=== PATIENT | male | born 1975 | race African-American/Black ===

== ENCOUNTER 2016-12-23 16:46 | Emergency (ER) | payer BC, OTHER ==
[2016-12-23 17:29] VITALS: BP 119/78
--- NOTE | 2016-12-23 18:34 | EDM.PDOC ---
<Omid Hinojosa Darryl - Last Filed: 12/23/16 19:19> ED HPI GENERAL MEDICAL PROBLEM - General Chief Complaint: Back Pain or Injury Stated Complaint: SHOULDER PAIN Time Seen by Provider: 12/23/16 16:51 Source of Information: Reports: Patient History Limitations: Reports: No Limitations - History of Present Illness INITIAL COMMENTS - FREE TEXT/NARRATIVE: 41 y/o M sent from clinic for eval of R shoulder pain and subjective fever. Patient returned from visit to [facility] 2 days ago. 3 days ago had mild abd pain and nausea after eating, thought it was from bad food. This resolved. After flight, started having pain in R shoulder, neck/back, diffuse myalgias, and subjective fever. Worried that he may have malaria. Denies injury to arm. Pain is throughout shoulders/back area but is most severe in R shoulder. No additional joint pain. Unable to lift R arm due to pain in the joint of the shoulder area. Denies hx similar sx. Denies additional arm pain. No numbness/ tingling. No cough. No vomiting or diarrhea. Continues to feel fatiguted/ ill. No rash. Seen in clinic today where labs were completed, sent here for further eval. Treatments [employer]: Reports: NSAIDS Upper Back Pain Score (Numeric/FACES): 9 - Related Data Allergies Allergy/AdvReac Type Severity Reaction Status Date / Time No Known Allergies Allergy Verified 12/23/16 17:29 Home Meds: Home Meds Rosuvastatin [Crestor] 10 mg PO BEDTIME 12/23/16 [History] Past Medical History - Past Health History Medical/Surgical History: Denies Medical/Surgical History Cardiovascular History: Reports: High Cholesterol - Past Surgical History HEENT Surgical History: Reports: Oral Surgery Social & Family History - Family History Family Medical History: Noncontributory - Tobacco Use Smoking Status *Q: Never Smoker Years of Tobacco use: 1 Second Hand Smoke Exposure: No - Alcohol Use Days Per Week of Alcohol Use: 2 Number of Drinks Per Day: 1 Total Drinks Per Week: 2 - Recreational Drug Use Recreational Drug Use: No ED ROS GENERAL - Review of Systems Review Of Systems: See Below Constitutional: Reports: Fever, Chills, Malaise, Weakness, Fatigue HEENT: Reports: No Symptoms Respiratory: Denies: Shortness of Breath, Cough Cardiovascular: Denies: Chest Pain Endocrine: Reports: Fatigue GI/Abdominal: Reports: Abdominal Pain : Reports: No Symptoms Musculoskeletal: Reports: Neck Pain, Shoulder Pain Skin: Denies: Rash Neurological: Reports: No Symptoms Psychiatric: Reports: No Symptoms Hematologic/Lymphatic: Reports: No Symptoms Immunologic: Reports: No Symptoms ED EXAM, UPPER BACK/NECK PAIN - Physical Exam Exam: See Below Exam Limited By: No Limitations General Appearance: Alert, WD/WN, No Apparent Distress Eye Exam: Bilateral Eye: Normal Inspection Ears Exam: Normal External Exam Nose Exam: Normal Inspection, Normal Mucousa, No Blood Throat/Mouth Exam: Normal Inspection, Normal Lips, Normal Teeth, Normal Gums, Normal Oropharynx, Normal Voice, No Airway Compromise Head Exam: Atraumatic, Normocephalic Neck Exam: Full Range of Motion, Normal Alignment, Normal Inspection, Paraspinous Muscle Tender. No: Muscle Spasm, Painful Range of Motion, Stiff Neck, Tender Midline Cardiovascular/Respiratory: Regular Rate, Rhythm, Normal Peripheral Pulses GI/Abdominal: Soft, Non-Tender, No Distention. No: Rebound Back Exam: Normal Inspection, Full Range of Motion, Paraspinal Tenderness. No: CVA Tenderness (L), CVA Tenderness (R), Vertebral Tenderness Extremities: Normal Inspection, Other (No musuloskeletal point TTP. Limited ROM Of R shoulder. Very limited abduction due to pain. No appreciable external abnormality. ). No: Joint Swelling, Increased Warmth, Redness Course - Vital Signs Last Recorded V/S: Last Vital Signs Temp 98.5 F 12/23/16 17:21 Pulse 55 L 12/23/16 17:21 Resp 16 12/23/16 17:21 BP 119/78 12/23/16 17:21 Pulse Ox 100 12/23/16 17:21 - Orders/Labs/Meds Orders: Active Orders 24 hr Category Date Time Status MALARIA SMEARS [MREF] Stat Lab 12/23/16 19:38 Received PARASITE DIRECT SMEAR [OP] Stat Lab 12/23/16 18:11 Uncollected Labs: Laboratory Tests 12/23/16 12/23/16 Range/Units 21:15 21:15 WBC 8.31 (4.23-9.07) K/mm3 RBC 5.05 (4.63-6.08) M/mm3 Hgb 13.3 L (13.7-17.5) gm/L Hct 38.8 L (40.1-51.0) % MCV 76.8 L (79.0-92.2) fl MCH 26.3 (25.7-32.2) pg MCHC 34.3 (32.2-35.5) g/dl RDW Std Deviation 38.3 (35.1-43.9) fL Plt Count 139 L (163-337) K/mm3 MPV 11.6 (9.4-12.3) fl Neut % (Auto) 69.4 H (34.0-67.9) % Lymph % (Auto) 13.7 L (21.8-53.1) % [place] % (Auto) 14.1 H (5.3-12.2) % Eos % (Auto) 2.4 (0.8-7.0) Baso % (Auto) 0.2 (0.1-1.2) % Neut # (Auto) 5.76 H (1.78-5.38) K/mm3 Lymph # (Auto) 1.14 L (1.32-3.57) K/mm3 [place] # (Auto) 1.17 H (0.30-0.82) K/mm3 Eos # (Auto) 0.20 (0.04-0.54) K/mm3 Baso # (Auto) 0.02 (0.01-0.08) K/mm3 C-Reactive Protein 7.7 H* (<1.0) mg/dL Meds: Medications Discontinued Medications Generic Name Dose Route Start Last Admin Trade Name Freq PRN Reason Stop Dose Admin Hydromorphone HCl 1 mg 12/23/16 18:38 12/23/16 19:38 Dilaudid IM 12/23/16 18:39 1 mg ONETIME ONE Administration Ibuprofen 800 mg 12/23/16 18:38 12/23/16 19:41 Motrin PO 12/23/16 18:39 800 mg ONETIME ONE Administration - Re-Assessments/Exams Free Text/Narrative Re-Assessment/Exam: 12/23/16 18:42 Reviewed labs from earlier today. Normal CBC. CRP elevated at 7. Blood smear reportedly ordered but I don't see in process so will re-order as a parasite smear to rule out malaria. Discussed with patient that I'm concerned about his severe R shoulder pain and mildly elevated CRP. He doesn't recall an injury. His exam is consistent with possible rotator cuff tear but he doesn't recall injury. No external sign of infection. Can't rule out septic joint at this point. Discussed transfer to [place] for further eval as we have no ortho, but patient would prefer to rule out malaria first as he feels his symptoms are consistent with malaria. Signed out to Dr. Nur pending blood smear results. 12/23/16 19:19 12/23/16 19:20 Departure - Departure Disposition: Home, Self-Care 01 Clinical Impression: Malaise and fatigue, Myalgia Right shoulder pain Qualifiers: Chronicity: acute Qualified Code(s): M25.511 - Pain in right shoulder - Discharge Information Forms: ED Department Discharge, Return to Work/School Form Additional Instructions: When you go home this evening drink lots of fluids rest and sleep as much as possible, take Tylenol or ibuprofen as needed for the body aches and if you develop a fever greater than 101 you need return to the ER for reevaluation or if your right shoulder continues to worsen rather than getting better return to the ER for reevaluation, we should have the malaria smear back in 2-3 days and we will call you with the results <Darrel Nur - Last Filed: 12/23/16 22:07> Course - Re-Assessments/Exams Free Text/Narrative Re-Assessment/Exam: 12/23/16 22:02 I went and spoke to the patient approximately 2 hours ago and he states his shoulder is feeling better. Reexamination of the right shoulder reveals no erythema no swelling no skin warmth differential. He was able to lift that shoulder and upper arm above shoulder height and states that it feels like his shoulder is feeling better now. We repeated the white count and it was decreased from earlier today at 8.3 from 10. The C-reactive protein is slightly more elevated than earlier today but not significantly changed at 7.7. We did do a malaria smear but is to take 2-3 days to get the results back. In the meantime he needs to go home drink lots of fluids take it easy if his right shoulder continues to bother him or worsen or he develops a fever greater than 101 he is to return to the ER or see his family doctor. Departure - Departure Time of Disposition: 22:05 Condition: Good
[2016-12-23] MEDS ORDERED: HYDROmorphone 1 MG/ML Syringe IM ONE (18:38)
[2016-12-23] MEDS ORDERED: Ibuprofen 800 MG Tab PO ONE (18:38)
== END 2016-12-23 22:23 | disposition home or self-care (01) ==
LOC: JD.ED 16:46
DX: M25.511 Pain in right shoulder (principal); M79.1 Myalgia; R53.81 Other malaise; R53.83 Other fatigue; E78.00 Pure hypercholesterolemia, unspecified
CPT/HCPCS: 36415; 85025; 86140; 96372; 99283; A9270; J1170; 87207

== ENCOUNTER 2021-11-14 07:35 | Emergency (ER) | payer BC ==
[2021-11-14] MEDS ORDERED: Lactated Ringers 1,000 ML IV ONE (07:49)
[2021-11-14 09:28] VITALS: PULSE 62
[2021-11-14 10:15] VITALS: BP 110/83
== END 2021-11-14 10:12 | disposition home or self-care (01) ==
LOC: JD.ED 07:35
DX: R55 Syncope and collapse (principal)
CPT/HCPCS: 36415; 80053; 83735; 85025; 85379; 93005; 96360; 99284; J7120; 93010; 99283